=== PATIENT | male | born 1955 | race Caucasian/White ===

== ENCOUNTER 2016-09-14 15:15 | Inpatient (IN) | payer OTHER ==
[2016-09-14] MEDS ORDERED: RX INFO: IV CONTRAST WAS GIVEN 1 EACH MISC MISCELLANE PRN (15:21)
[2016-09-14] MEDS ORDERED: DIPH,PERTUS(ACELL)TETVAC-LF 0.5 ML VIAL IM ONE (15:23)
[2016-09-14 15:34] LABS: Glucose,Whole Blood 134 mg/dL (75-99)
[2016-09-14 15:35] LABS: Basophils # (A) 0.1 k/uL (0-0.2); Basophils % (A) 0 %; CH 30.2; CHCM 33.3; Eosinophils # (A) 0.2 k/uL (0-0.7); Eosinophils % (A) 1 %; HCT 43.5 % (39.0-53.0); HDW 2.34; HGB 14.6 gm/dL (13.0-17.5); Luc % (Auto) 2; Lymphocytes # (A) 2.9 k/uL (1.0-4.8); Lymphocytes % (A) 24 %; MCH 30.6 pg (25.0-35.0); MCHC 33.5 g/dL (31.0-37.0); MCV 91.3 fL (80.0-100.0); Mean Platelet Volume 7.6; Monocytes # (A) 0.5 k/uL (0-1.0); Monocytes % (A) 4 %; Neutrophils # (A) 8.6 k/uL (1.3-7.7); Neutrophils % (A) 69 %; RBC 4.76 m/uL (4.30-5.90); RDW 12.5 % (11.5-15.5); WBC 12.5 k/uL (3.8-10.6); WBC (Perox) 12.77
[2016-09-14 15:37] LABS: ALT 127 U/L (21-72); AST 151 U/L (17-59); Alcohol <10 mg/dL; Alkaline Phosphatase 92 U/L (38-126); Amylase 97 U/L (30-110); Anion Gap 11 mmol/L; Blood Urea Nitrogen 20 mg/dL (9-20); Calcium 9.7 mg/dL (8.4-10.2); Carbon Dioxide 20 mmol/L (22-30); Chloride 110 mmol/L (98-107); Glucose 140 mg/dL (74-99); Non-African American GFR(MDRD) >60 (>60 ml/min/1.73 sqM); Potassium 3.4 mmol/L (3.5-5.1); Sodium 141 mmol/L (137-145); Total Bilirubin 0.8 mg/dL (0.2-1.3); Total Protein 6.7 g/dL (6.3-8.2)
[2016-09-14 15:44] LABS: INR 1.2 (<1.1); Partial Thromboplastin Time 22.2 sec (22.0-30.0); Prothrombin Time 11.8 sec (9.0-12.0)
[2016-09-14 15:47] LABS: Creatine Kinase 253 U/L (55-170)
--- NOTE | 2016-09-14 15:54 | XR ---
EXAMINATION TYPE: XR chest 1V portable DATE OF EXAM: 09/14/2016 COMPARISON: 06/06/2016 HISTORY: Fall and trauma TECHNIQUE: Single frontal view of the chest is obtained. FINDINGS: There is some left-sided perihilar pulmonary infiltrate and atelectasis. There is a fract ure of the posterior left fourth rib. There are chest leads. There is an approximate 50% left pneumot horax. I see no pleural effusion. There are chest leads. IMPRESSION: 50% left pneumothorax with some atelectasis and infiltrate in the left lung. Left rib fr acture. This exam was discussed with Dr. Bishop at 3:50 PM.
--- NOTE | 2016-09-14 15:55 | XR ---
EXAMINATION TYPE: XR pelvis AP view DATE OF EXAM: 09/14/2016 COMPARISON: NONE HISTORY: Fall TECHNIQUE: Single view FINDINGS: Pelvic ring is intact. Proximal femurs and hip joints appear intact. Sacroiliac joints appe ar normal. IMPRESSION: Negative pelvis x-ray exam.
[2016-09-14 15:59] LABS: Troponin I <0.012 ng/mL (0.000-0.034)
--- NOTE | 2016-09-14 15:59 | CT ---
EXAMINATION TYPE: CT brain claudia cruz DATE OF EXAM: 09/14/2016 COMPARISON: NONE HISTORY: Fall 8 foot from ladder after being hit in chest with large tree limb. CT DLP: 1539.20 mGycm Automated exposure control for dose reduction was used. TECHNIQUE: CT scan of the head and cervical spine are performed without contrast. FINDINGS: The ventricles have normal size. There is no mass effect nor midline shift. There is no s ign of intracranial hemorrhage. The calvarium is intact. I see no fracture. Cervical vertebra have normal alignment. Disc spaces are fairly normal. There is mild multilevel hype rtrophic facet arthropathy. The skull base is intact. There is a left pneumothorax noted at the left lung apex. There is a nondisplaced fracture left first rib. IMPRESSION: Negative CT scan of the brain. No evidence of traumatic injury. Negative CT scan of the cervical spine. Mild facet arthropathy. Left apical pneumothorax. Left first rib fracture noted.
[2016-09-14 16:02] LABS: Creatine Kinase MB 2.5 ng/mL (0.0-2.4)
--- NOTE | 2016-09-14 16:08 | CT ---
EXAMINATION TYPE: CT ChestAbdPelvis w con DATE OF EXAM: 09/14/2016 COMPARISON: NONE HISTORY: Fall 8 foot from ladder after being hit in chest with large tree limb. CT DLP: 540.70 mGycm Automated exposure control for dose reduction was used. CONTRAST: CT scan of the chest, abdomen and pelvis is performed without Oral Contrast and with IV Contrast, pat ient injected with 100 mL of Omnipaque 300. FINDINGS: There is a 50% left pneumothorax. There is patchy atelectasis at the lung bases. The thoracic aorta i s intact. Heart size is normal. There is no pleural effusion. There is nondisplaced fracture left first rib. There is probably a nondisplaced fracture anterior lef t first rib at the sternum. There are fractures of the posterior second third fourth ribs as well. Liver spleen pancreas gallbladder appear normal. Bile ducts are not dilated. There is no adrenal mass . Kidneys show satisfactory contrast opacification. There is no hydronephrosis. There is no retroperi toneal adenopathy. Abdominal aorta is atheromatous. Bladder distends smoothly. There is no pelvic mas s. Abdominal aorta is atheromatous. I see no intestinal wall thickening. There are no dilated loops. IMPRESSION: Multiple left upper posterior rib fractures. Large left pneumothorax. Patchy infiltrate and atelecta sis in the lung bases. No sign of traumatic injury below the diaphragm.
[2016-09-14] MEDS: fentaNYL (PF) 50 MCG/ML 2 ML AMP IV STA ×2 (16:13→16:35)
[2016-09-14] MEDS: MIDAZOLAM (PF) 1 MG/ML 5 ML VIAL IV STA ×2 (16:15→16:35)
--- NOTE | 2016-09-14 16:49 | ED ---
Trauma HPI - General Chief Complaint: Trauma Stated Complaint: FALL FROM LADDER APX 8 FT Time Seen by Provider: 09/14/16 15:15 Source: patient, EMS, RN notes reviewed Mode of arrival: EMS Limitations: no limitations - History of Present Illness Initial Comments: 60-year-old male with a benign past history who apparently was at the top of a footwear chainsaw trying to cut a 2 foot diameter tree branch fell in the branch came down and it knocked him to the ground off the ladder. He landed on grass he denies any loss of consciousness he has some neck pain he complains of pain was shoulders especially on the left also he complained of anterior chest pain some shortness of breath. He is a smoker denies any lung or heart disease. Is unsure when his last tetanus shot was. He was brought in by EMS backboard with cervical collar in place. He did demonstrate a Kathleen Coma Scale of 15 upon arrival. He does complain of Severe Pain MD Complaint: fall, injury - Related Data Allergies Allergy/AdvReac Type Severity Reaction Status Date / Time No Known Allergies Allergy Verified 09/14/16 15:20 Review of Systems ROS Statement: Those systems with pertinent positive or pertinent negative responses have been documented in the HPI. ROS Other: All systems not noted in ROS Statement are negative. Past Medical History Past Medical History: No Reported History History of Any Multi-Drug Resistant Organisms: Unobtainable Past Surgical History: No Surgical Hx Reported Past Psychological History: Unable to Obtain Smoking Status: Unknown if ever smoked Past Alcohol Use History: Unable to Obtain Past Drug Use History: Unable to Obtain General Exam - General Exam Comments Initial Comments: This is a well-developed well-nourished awake alert oriented 3 male he does have a cervical collar he is on a backboard. The backboard was cleared after determination of no spinal process tenderness or neurological deficits to the extremities. Limitations: no limitations, physical limitation General appearance: alert, anxious, in distress Head exam: Present: normocephalic, other (Ecchymosis seen over the left orbit patient is unsure when this occurred) Eye exam: Present: PERRL, EOMI ENT exam: Present: normal exam, mucous membranes moist Neck exam: Present: tenderness, other (Abrasion seen over the anterior neck however the trachea is midline.) Respiratory exam: Present: chest wall tenderness, decreased breath sounds, other (Abrasion seen over the anterior chest tenderness over the left upper chest wall some questionable crepitation.Breath sounds on the left lung base and left-sided chest) Cardiovascular Exam: Present: regular rate, normal rhythm, normal heart sounds. Absent: systolic murmur, diastolic murmur, rubs, gallop, clicks GI/Abdominal exam: Present: soft, normal bowel sounds. Absent: distended, tenderness, guarding, rebound, rigid Rectal exam: Present: normal inspection. Absent: bloody stool Extremities exam: Present: full ROM, tenderness, normal capillary refill, other (Abrasion seen over the anterior right and left shoulders) Back exam: Present: full ROM, tenderness, CVA tenderness (L), muscle spasm, paraspinal tenderness, other (Tenderness palpation over the left posterior ribs abrasion seen over the right posterior lateral chest wall no step-off or crepitation.). Absent: CVA tenderness (R), vertebral tenderness Neurological exam: Present: alert, oriented X3, CN II-XII intact Psychiatric exam: Present: anxious Skin exam: Present: warm, dry, normal color. Absent: intact Course Vital Signs 09/14/16 15:16 Temperature 97.0 F L Pulse Rate 55 L Respiratory 18 Rate Blood Pressure 142/88 O2 Sat by Pulse 98 Oximetry - Reevaluation(s) Reevaluation #1: 09/14/16 17:17 Reevaluation the patient after the insertion of the chest reveals increased aeration on the left side. Patient is more comfortable at this time. Medical Decision Making - Medical Decision Making I did discuss case with Dr. Lee patient will be admitted with thoracic and pulmonary consultation. The patient will be admitted to a monitored bed. - Lab Data Result diagrams: 09/14/16 15:21 09/14/16 15:21 Lab Results 09/14/16 09/14/16 09/14/16 Range/Units 15:21 15:21 15:21 WBC 12.5 H (3.8-10.6) k/uL RBC 4.76 (4.30-5.90) m/uL Hgb 14.6 (13.0-17.5) gm/dL Hct 43.5 (39.0-53.0) % MCV 91.3 (80.0-100.0) fL MCH 30.6 (25.0-35.0) pg MCHC 33.5 (31.0-37.0) g/dL RDW 12.5 (11.5-15.5) % Plt Count 208 (150-450) k/uL Neutrophils % 69 % Lymphocytes % 24 % Monocytes % 4 % Eosinophils % 1 % Basophils % 0 % Neutrophils # 8.6 H (1.3-7.7) k/uL Lymphocytes # 2.9 (1.0-4.8) k/uL Monocytes # 0.5 (0-1.0) k/uL Eosinophils # 0.2 (0-0.7) k/uL Basophils # 0.1 (0-0.2) k/uL PT (9.0-12.0) sec INR (<1.1) APTT (22.0-30.0) sec Sodium 141 (137-145) mmol/L Potassium 3.4 L (3.5-5.1) mmol/L Chloride 110 H (98-107) mmol/L Carbon Dioxide 20 L (22-30) mmol/L Anion Gap 11 mmol/L BUN 20 (9-20) mg/dL Creatinine 1.20 (0.66-1.25) mg/dL Est GFR (MDRD) Af Amer >60 (>60 ml/min/1.73 sqM) Est GFR (MDRD) Non-Af >60 (>60 ml/min/1.73 sqM) Glucose 140 H (74-99) mg/dL POC Glucose (mg/dL) (75-99) mg/dL POC Glu [facility] ID Plasma Lactic Acid Richardson (0.7-2.0) mmol/L Calcium 9.7 (8.4-10.2) mg/dL Total Bilirubin 0.8 (0.2-1.3) mg/dL AST 151 H (17-59) U/L ALT 127 H (21-72) U/L Alkaline Phosphatase 92 (38-126) U/L Total Creatine Kinase (55-170) U/L CK-MB (CK-2) (0.0-2.4) ng/mL CK-MB (CK-2) Rel Index Troponin I (0.000-0.034) ng/mL Total Protein 6.7 (6.3-8.2) g/dL Albumin 4.0 (3.5-5.0) g/dL Amylase 97 (30-110) U/L Lipase 238 (23-300) U/L Serum Alcohol <10 mg/dL Blood Type B Positive Blood Type Recheck CABO Indicated Antibody Screen NEGATIVE Spec Expiration Date 09/17/2016 - 232009/14/16 09/14/16 09/14/16 Range/Units 15:21 15:21 15:21 WBC (3.8-10.6) k/uL RBC (4.30-5.90) m/uL Hgb (13.0-17.5) gm/dL Hct (39.0-53.0) % MCV (80.0-100.0) fL MCH (25.0-35.0) pg MCHC (31.0-37.0) g/dL RDW (11.5-15.5) % Plt Count (150-450) k/uL Neutrophils % % Lymphocytes % % Monocytes % % Eosinophils % % Basophils % % Neutrophils # (1.3-7.7) k/uL Lymphocytes # (1.0-4.8) k/uL Monocytes # (0-1.0) k/uL Eosinophils # (0-0.7) k/uL Basophils # (0-0.2) k/uL PT 11.8 (9.0-12.0) sec INR 1.2 (<1.1) APTT 22.2 (22.0-30.0) sec Sodium (137-145) mmol/L Potassium (3.5-5.1) mmol/L Chloride (98-107) mmol/L Carbon Dioxide (22-30) mmol/L Anion Gap mmol/L BUN (9-20) mg/dL Creatinine (0.66-1.25) mg/dL Est GFR (MDRD) Af Amer (>60 ml/min/1.73 sqM) Est GFR (MDRD) Non-Af (>60 ml/min/1.73 sqM) Glucose (74-99) mg/dL POC Glucose (mg/dL) (75-99) mg/dL POC Glu Traditional [facility] ID Plasma Lactic Acid Richardson 2.0 (0.7-2.0) mmol/L Calcium (8.4-10.2) mg/dL Total Bilirubin (0.2-1.3) mg/dL AST (17-59) U/L ALT (21-72) U/L Alkaline Phosphatase (38-126) U/L Total Creatine Kinase 253 H (55-170) U/L CK-MB (CK-2) 2.5 H* (0.0-2.4) ng/mL CK-MB (CK-2) Rel Index 1.0 Troponin I <0.012 (0.000-0.034) ng/mL Total Protein (6.3-8.2) g/dL Albumin (3.5-5.0) g/dL Amylase (30-110) U/L Lipase (23-300) U/L Serum Alcohol mg/dL Blood Type Blood Type Recheck Antibody Screen Spec Expiration Date 09/14/16 Range/Units 15:23 WBC (3.8-10.6) k/uL RBC (4.30-5.90) m/uL Hgb (13.0-17.5) gm/dL Hct (39.0-53.0) % MCV (80.0-100.0) fL MCH (25.0-35.0) pg MCHC (31.0-37.0) g/dL RDW (11.5-15.5) % Plt Count (150-450) k/uL Neutrophils % % Lymphocytes % % Monocytes % % Eosinophils % % Basophils % % Neutrophils # (1.3-7.7) k/uL Lymphocytes # (1.0-4.8) k/uL Monocytes # (0-1.0) k/uL Eosinophils # (0-0.7) k/uL Basophils # (0-0.2) k/uL PT (9.0-12.0) sec INR (<1.1) APTT (22.0-30.0) sec Sodium (137-145) mmol/L Potassium (3.5-5.1) mmol/L Chloride (98-107) mmol/L Carbon Dioxide (22-30) mmol/L Anion Gap mmol/L BUN (9-20) mg/dL Creatinine (0.66-1.25) mg/dL Est GFR (MDRD) Af Amer (>60 ml/min/1.73 sqM) Est GFR (MDRD) Non-Af (>60 ml/min/1.73 sqM) Glucose (74-99) mg/dL POC Glucose (mg/dL) 134 H (75-99) mg/dL POC Glu [facility] ID [facility] Plasma Lactic Acid Richardson (0.7-2.0) mmol/L Calcium (8.4-10.2) mg/dL Total Bilirubin (0.2-1.3) mg/dL AST (17-59) U/L ALT (21-72) U/L Alkaline Phosphatase (38-126) U/L Total Creatine Kinase (55-170) U/L CK-MB (CK-2) (0.0-2.4) ng/mL CK-MB (CK-2) Rel Index Troponin I (0.000-0.034) ng/mL Total Protein (6.3-8.2) g/dL Albumin (3.5-5.0) g/dL Amylase (30-110) U/L Lipase (23-300) U/L Serum Alcohol mg/dL Blood Type Blood Type Recheck Antibody Screen Spec Expiration Date - EKG Data EKG shows normal: sinus rhythm (Sinus bradycardia rate of 55. We'll 150 to QRS 76 QT since QTC of 444/[address] depression low- voltage QRS artifact is present) - Radiology Data Radiology results: report reviewed (I did review the imaging and reports are is evidence of approximately 50% pneumothorax in the left fourth multiple rib fractures ribs [address] imaging is negative.), image reviewed Critical Care Time Critical Care Time: Yes Critical Care Time: 40 minutes of critical care time which includes initial monitoring of the EMS run paramedics history physical labs and x-rays on the patient reevaluation patient on multiple occasions. Discussion with the patient regarding the findings discussed with the trauma surgeon initially green party to was called also after results). This does not include insertion of the tube thoracostomy. Initial orders documentation the above Disposition Clinical Impression: Pneumothorax on left, Multiple rib fractures involving first rib, Multiple abrasions, Fall Disposition: ADMITTED IP TO THIS [facility] Condition: Stable Referrals: None,Stated [Primary Care Provider] - 1-2 days Decision Time: 16:55
[2016-09-14] MEDS ORDERED: ceFAZolin 1,000 MG in DEXTROSE/WATER 1 50ML.BAG IVPB STA (17:17)
[2016-09-14] MEDS ORDERED: NALOXONE 0.4 MG/ML 1 ML VIAL IV PRN (17:21)
--- NOTE | 2016-09-14 17:21 | XR ---
EXAMINATION TYPE: XR chest 1V portable DATE OF EXAM: 09/14/2016 COMPARISON: Today HISTORY: Chest tube placement TECHNIQUE: Single frontal view of the chest is obtained. FINDINGS: There is left chest tube that appears in good position. There is decrease in the left pneu mothorax compared to exam earlier today. Trachea is midline. Heart appears enlarged. There are chest leads. IMPRESSION: Left chest tube is in good position. The pneumothorax is decreased. The infiltrate and a telectasis in the left lung is unchanged.
[2016-09-14] MEDS: IPRATROPIUM-ALBUTEROL 3 ML NEB INHALATION STA ×2 (17:44→17:53)
[2016-09-14] MEDS ORDERED: HYDROmorphone 1 MG/ML 1 ML SYRINGE IVP STA (17:45)
[2016-09-14] MEDS: HYDROmorphone 1 MG/ML 1 ML SYRINGE IV PRN ×2 (17:49→21:08)
--- NOTE | 2016-09-14 18:28 | P.GSHP ---
History of Present Illness H&P Date: 09/14/16 Chief Complaint: Thorcic trauma due to falling tree Patient's 52-year-old gentleman who was cutting a tree and that fell down on amount of the back. He was reportedly alert awake oriented throughout that and did not lose consciousness. He was brought to the emergency room and was reportedly at a GCS of 15 without any focal deficits. Further evaluation revealed a large 70% pneumothorax on the left side with fractures of the posterior ribs. Her chest tube was placed which resulted in reinflation of the lung without any issues. At that time he was sedated for the procedure with Versed and on further interview he does not recall the details of his trauma but prior to that had been completely alert and cooperative with details on his trauma. He is complaining of significant amount of left-sided pain. He is also complaining some pain at the site of his periorbital ecchymosis. There is no nausea no vomiting no incontinence reported. No complaint of abdominal pain focal deficit no discomfort in the lower extremities upper extremities. His no other pain and discomfort in the lower back onto the abdomen. - Review of Systems Comment: Review of systems is slightly limited due to the patient being in the effect of Versed and fentanyl - Constitutional Constitutional: Reports fatigue - EENT Eyes: denies blurred vision - Cardiovascular Cardiovascular: Reports chest pain, Denies lightheadedness, Denies shortness of breath - Respiratory Respiratory: Denies congestion, Denies cough with sputum - Gastrointestinal Gastrointestinal: Denies abdominal pain, Denies diarrhea, Denies nausea, Denies vomiting - Genitourinary (Male) Genitourinary: Reports as per HPI - Musculoskeletal Musculoskeletal: Denies myalgias Past Medical History Past Medical History: No Reported History History of Any Multi-Drug Resistant Organisms: Unobtainable Past Surgical History: No Surgical Hx Reported Past Psychological History: Unable to Obtain Smoking Status: Unknown if ever smoked Past Alcohol Use History: Unable to Obtain Past Drug Use History: Unable to Obtain Medications and Allergies Home Medications Medication Instructions Recorded Confirmed Type No Known Home Medications [No 09/14/16 09/14/16 History Known Home Medications] Allergies Allergy/AdvReac Type Severity Reaction Status Date / Time No Known Allergies Allergy Verified 09/14/16 17:37 Surgical - Exam Vital Signs Temp Pulse Resp BP Pulse Ox 97.0 F L 55 L 18 142/88 98 09/14/16 15:16 07/09/17 15:16 09/14/16 15:16 09/14/16 15:16 09/14/16 15:16 - General well developed, well nourished, severe distress - Eyes Pupils are pinpoint and sluggish to move probably due to recent administration of fentanyl normal ocular movement, no icteric, no deviation - ENT normal pinna, normal nares, normal mucosa, no hearing loss, no congestion, no decreased hearing, no deviated nasal septum, no nasal discharge - Neck no masses, no bruits, trachea midline, no venous distension, no deviated trachea thyroid nodule: absent - Respiratory normal expansion, normal respiratory effort - Cardiovascular Rhythm: regular - Abdomen Abdomen: soft, non tender, no surgical scars, no wound, no rebound Hernia: none - Genitourinary normal penis with no external lesions - Integumentary Patient has a small abrasion of the chest he does multiple abrasions and extended over the shoulder. He is a small open wound over the left shoulder. He has left periorbital ecchymosis without any conjunctival hemorrhage. - Neurologic normal coordination, normal sensation, no combative, confused - Musculoskeletal normal posture - Psychiatric oriented to time, oriented to person, oriented to place, speech is normal, memory intact Results - Labs 09/14/16 15:21 09/14/16 15:21 Abnormal Lab Results - Last 24 Hours (Table) 09/14/16 09/14/16 09/14/16 Range/Units 15:21 15:21 15:21 WBC 12.5 H (3.8-10.6) k/uL Neutrophils # 8.6 H (1.3-7.7) k/uL Potassium 3.4 L (3.5-5.1) mmol/L Chloride 110 H (98-107) mmol/L Carbon Dioxide 20 L (22-30) mmol/L Glucose 140 H (74-99) mg/dL POC Glucose (mg/dL) (75-99) mg/dL AST 151 H (17-59) U/L ALT 127 H (21-72) U/L Total Creatine Kinase 253 H (55-170) U/L CK-MB (CK-2) 2.5 H* (0.0-2.4) ng/mL 09/14/16 Range/Units 15:23 WBC (3.8-10.6) k/uL Neutrophils # (1.3-7.7) k/uL Potassium (3.5-5.1) mmol/L Chloride (98-107) mmol/L Carbon Dioxide (22-30) mmol/L Glucose (74-99) mg/dL POC Glucose (mg/dL) 134 H (75-99) mg/dL AST (17-59) U/L ALT (21-72) U/L Total Creatine Kinase (55-170) U/L CK-MB (CK-2) (0.0-2.4) ng/mL Diabetes panel 09/14/16 Range/Units 15:21 Sodium 141 (137-145) mmol/L Potassium 3.4 L (3.5-5.1) mmol/L Chloride 110 H (98-107) mmol/L Carbon Dioxide 20 L (22-30) mmol/L BUN 20 (9-20) mg/dL Creatinine 1.20 (0.66-1.25) mg/dL Glucose 140 H (74-99) mg/dL Calcium 9.7 (8.4-10.2) mg/dL AST 151 H (17-59) U/L ALT 127 H (21-72) U/L Alkaline Phosphatase 92 (38-126) U/L Total Protein 6.7 (6.3-8.2) g/dL Albumin 4.0 (3.5-5.0) g/dL Calcium panel 09/14/16 Range/Units 15:21 Calcium 9.7 (8.4-10.2) mg/dL Albumin 4.0 (3.5-5.0) g/dL Pituitary panel 09/14/16 Range/Units 15:21 Sodium 141 (137-145) mmol/L Potassium 3.4 L (3.5-5.1) mmol/L Chloride 110 H (98-107) mmol/L Carbon Dioxide 20 L (22-30) mmol/L BUN 20 (9-20) mg/dL Creatinine 1.20 (0.66-1.25) mg/dL Glucose 140 H (74-99) mg/dL Calcium 9.7 (8.4-10.2) mg/dL Adrenal panel 09/14/16 Range/Units 15:21 Sodium 141 (137-145) mmol/L Potassium 3.4 L (3.5-5.1) mmol/L Chloride 110 H (98-107) mmol/L Carbon Dioxide 20 L (22-30) mmol/L BUN 20 (9-20) mg/dL Creatinine 1.20 (0.66-1.25) mg/dL Glucose 140 H (74-99) mg/dL Calcium 9.7 (8.4-10.2) mg/dL Total Bilirubin 0.8 (0.2-1.3) mg/dL AST 151 H (17-59) U/L ALT 127 H (21-72) U/L Alkaline Phosphatase 92 (38-126) U/L Total Protein 6.7 (6.3-8.2) g/dL Albumin 4.0 (3.5-5.0) g/dL - Imaging Additional studies: Left-sided pneumothorax with posterior rib fractures Assessment and Plan (1) Fall Status: Acute (2) Multiple abrasions Status: Acute (3) Multiple rib fractures involving first rib Status: Acute (4) Pneumothorax on left Status: Acute Plan: Original gentleman previous history of smoking. Likely he has some element of COPD. In the large pneumothorax which responded to this and the chest tube. Is complaining of significant pain. Chest x-ray revealed resolution of pneumothorax. Due to the patient's posterior rib fractures and pain the patient will be admitted. I will consult pulmonology as well as thoracic for management of chest tube. The patient does likely have underlying lung contusion as well.
[2016-09-14] MEDS: SODIUM CHLORIDE 0.9% 1,000 ML IV SCH (19:11)
[2016-09-14] MEDS ORDERED: IPRATROPIUM-ALBUTEROL 3 ML NEB INHALATION SCH (20:00)
[2016-09-14] MEDS ORDERED: IPRATROPIUM-ALBUTEROL 3 ML NEB INHALATION PRN (20:21)
[2016-09-14] MEDS: LIDOCAINE 5% PATCH TOPICAL SCH (21:09)
[2016-09-14] MEDS: PANTOPRAZOLE 40 MG/10 ML VIAL IV SCH (21:37)
[2016-09-15] MEDS ORDERED: HYDROmorphone 1 MG/ML 1 ML SYRINGE ONE ×2
[2016-09-15] MEDS: SODIUM CHLORIDE 0.9% 1,000 ML IV SCH ×4 (06:01→23:47)
[2016-09-15] MEDS: HYDROmorphone 1 MG/ML 1 ML SYRINGE IV PRN ×3 (06:20→14:39)
[2016-09-15] MEDS ORDERED: HYDROcodone/APAP 5-325MG 1 EACH TAB PO PRN (08:48)
[2016-09-15] MEDS: LIDOCAINE 5% PATCH TOPICAL SCH (10:11)
[2016-09-15] MEDS: NICOTINE 21MG/24HR PATCH TRANSDERM SCH ×2 (10:11→10:19)
[2016-09-15] MEDS: PANTOPRAZOLE 40 MG/10 ML VIAL IV SCH ×2 (10:11→19:46)
--- NOTE | 2016-09-15 12:03 | P.GSCN ---
<Helga Raymundo - Last Filed: 09/15/16 11:50> History of Present Illness Consult date: 09/15/16 Reason for Consult: POD #1 left chest tube placement, status posttraumatic pneumothorax. Requesting physician: Joseluis Bishop History of present illness: This 52-year-old gentleman was up on a ladder cutting a tree at home which fell down and hit him. He fell off the ladder and there is a question as to whether he lost consciousness or not. He was brought to the emergency room with a GCS of 15 without deficits. Workup included multiple x-rays and CAT scans which demonstrated a left-sided pneumothorax as well as left-sided rib fractures. Left pleural chest tube was placed by the ER physicians with resolution of the patient's pneumothorax. Dr. Morales from cardiothoracic surgery was consulted for management of the chest tube. Review of Systems 14 point ROS was completed and was negative except as noted. - Constitutional Constitutional Comment(s): Difficulty sleeping - Cardiovascular Reports chest pain - Respiratory Reports as per HPI - Musculoskeletal right: shoulder pain, shoulder stiffness Past Medical History Past Medical History: No Reported History History of Any Multi-Drug Resistant Organisms: Unobtainable Past Surgical History: No Surgical Hx Reported Past Anesthesia/Blood Transfusion Reactions: No Reported Reaction Smoking Status: Former smoker Additional Past Alcohol Use History / Comment(s): States he quit drinking alcohol years ago Past Drug Use History: Marijuana Additional Drug Use History / Comment(s): Occasional marijuana use to help him sleep - Past Family History Mother Family Medical History: Cancer Additional Family Medical History / Comment(s): PANCREASE CANCER. Father History Unknown: Yes Medications and Allergies Home Medications Medication Instructions Recorded Confirmed Type No Known Home Medications [No 09/14/16 09/14/16 History Known Home Medications] Allergies Allergy/AdvReac Type Severity Reaction Status Date / Time No Known Allergies Allergy Verified 09/14/16 17:37 Surgical - Exam Vital Signs Temp Pulse Resp BP Pulse Ox 97.0 F L 55 L 18 142/88 98 09/14/16 15:16 09/14/16 15:16 09/14/16 15:16 09/14/16 15:16 09/14/16 15:16 - General well developed, well nourished, moderate pain - Eyes PERRL, normal ocular movement - ENT no hearing loss - Neck trachea midline - Respiratory Lungs sounds diminished bilaterally. Respirations even, nonlabored. Currently on 2 L nasal cannula with oxygen saturation 96%. Left pleural chest tube to - 20 cm wall suction, 10 mL serosanguineous drainage in the chamber, no air leak present. - Cardiovascular Rhythm: regular Heart Sounds: normal: S1, S2 - Abdomen Abdomen: soft, non tender, bowel sounds - Genitourinary Deferred - Rectum Deferred - Integumentary Multiple areas of ecchymosis, abrasions over her chest and shoulder areas - Neurologic normal sensation - Musculoskeletal Unable to lift right arm, may be secondary to pain. - Psychiatric oriented to time, oriented to person, oriented to place, speech is normal, memory intact Results - Labs 09/14/16 15:21 09/14/16 15:21 Abnormal Lab Results - Last 24 Hours (Table) 09/14/16 09/14/16 09/14/16 Range/Units 15:21 15:21 15:21 WBC 12.5 H (3.8-10.6) k/uL Neutrophils # 8.6 H (1.3-7.7) k/uL Potassium 3.4 L (3.5-5.1) mmol/L Chloride 110 H (98-107) mmol/L Carbon Dioxide 20 L (22-30) mmol/L Glucose 140 H (74-99) mg/dL POC Glucose (mg/dL) (75-99) mg/dL AST 151 H (17-59) U/L ALT 127 H (21-72) U/L Total Creatine Kinase 253 H (55-170) U/L CK-MB (CK-2) 2.5 H* (0.0-2.4) ng/mL 09/14/16 Range/Units 15:23 WBC (3.8-10.6) k/uL Neutrophils # (1.3-7.7) k/uL Potassium (3.5-5.1) mmol/L Chloride (98-107) mmol/L Carbon Dioxide (22-30) mmol/L Glucose (74-99) mg/dL POC Glucose (mg/dL) 134 H (75-99) mg/dL AST (17-59) U/L ALT (21-72) U/L Total Creatine Kinase (55-170) U/L CK-MB (CK-2) (0.0-2.4) ng/mL Diabetes panel 09/14/16 Range/Units 15:21 Sodium 141 (137-145) mmol/L Potassium 3.4 L (3.5-5.1) mmol/L Chloride 110 H (98-107) mmol/L Carbon Dioxide 20 L (22-30) mmol/L BUN 20 (9-20) mg/dL Creatinine 1.20 (0.66-1.25) mg/dL Glucose 140 H (74-99) mg/dL Calcium 9.7 (8.4-10.2) mg/dL AST 151 H (17-59) U/L ALT 127 H (21-72) U/L Alkaline Phosphatase 92 (38-126) U/L Total Protein 6.7 (6.3-8.2) g/dL Albumin 4.0 (3.5-5.0) g/dL Calcium panel 09/14/16 Range/Units 15:21 Calcium 9.7 (8.4-10.2) mg/dL Albumin 4.0 (3.5-5.0) g/dL Pituitary panel 09/14/16 Range/Units 15:21 Sodium 141 (137-145) mmol/L Potassium 3.4 L (3.5-5.1) mmol/L Chloride 110 H (98-107) mmol/L Carbon Dioxide 20 L (22-30) mmol/L BUN 20 (9-20) mg/dL Creatinine 1.20 (0.66-1.25) mg/dL Glucose 140 H (74-99) mg/dL Calcium 9.7 (8.4-10.2) mg/dL Adrenal panel 09/14/16 Range/Units 15:21 Sodium 141 (137-145) mmol/L Potassium 3.4 L (3.5-5.1) mmol/L Chloride 110 H (98-107) mmol/L Carbon Dioxide 20 L (22-30) mmol/L BUN 20 (9-20) mg/dL Creatinine 1.20 (0.66-1.25) mg/dL Glucose 140 H (74-99) mg/dL Calcium 9.7 (8.4-10.2) mg/dL Total Bilirubin 0.8 (0.2-1.3) mg/dL AST 151 H (17-59) U/L ALT 127 H (21-72) U/L Alkaline Phosphatase 92 (38-126) U/L Total Protein 6.7 (6.3-8.2) g/dL Albumin 4.0 (3.5-5.0) g/dL - Imaging Chest x-ray: image reviewed CT scan - chest: image reviewed Assessment and Plan (1) Status post chest tube placement Status: Acute (2) Fall Status: Acute (3) Multiple abrasions Status: Acute (4) Multiple rib fractures involving first rib Status: Acute (5) Pneumothorax on left Status: Acute Plan: The patient was seen and examined with Dr. Morales. Chart/diagnostics were reviewed. Continue current medical management per primary care service. [place] added for pain control. Incentive spirometry ordered and encouraged. We'll continue to monitor chest tube output and for air leak, we will monitor serial chest x-rays. More recommendations as patient progresses. Thank you for this consult. We look forward to working with you in the care of your patient. Time with Patient: Greater than 30 <Andrew Morales - Last Filed: 09/15/16 15:18> Surgical - Exam Vital Signs Temp Pulse Resp BP Pulse Ox 97.0 F L 55 L 18 142/88 98 09/14/16 15:16 09/14/16 15:16 09/14/16 15:16 09/14/16 15:16 09/14/16 15:16 Results - Labs 09/14/16 15:21 09/14/16 15:21 Abnormal Lab Results - Last 24 Hours (Table) 09/14/16 09/14/16 09/14/16 Range/Units 15:21 15:21 15:21 WBC 12.5 H (3.8-10.6) k/uL Neutrophils # 8.6 H (1.3-7.7) k/uL Potassium 3.4 L (3.5-5.1) mmol/L Chloride 110 H (98-107) mmol/L Carbon Dioxide 20 L (22-30) mmol/L Glucose 140 H (74-99) mg/dL POC Glucose (mg/dL) (75-99) mg/dL AST 151 H (17-59) U/L ALT 127 H (21-72) U/L Total Creatine Kinase 253 H (55-170) U/L CK-MB (CK-2) 2.5 H* (0.0-2.4) ng/mL 09/14/16 Range/Units 15:23 WBC (3.8-10.6) k/uL Neutrophils # (1.3-7.7) k/uL Potassium (3.5-5.1) mmol/L Chloride (98-107) mmol/L Carbon Dioxide (22-30) mmol/L Glucose (74-99) mg/dL POC Glucose (mg/dL) 134 H (75-99) mg/dL AST (17-59) U/L ALT (21-72) U/L Total Creatine Kinase (55-170) U/L CK-MB (CK-2) (0.0-2.4) ng/mL Diabetes panel 09/14/16 Range/Units 15:21 Sodium 141 (137-145) mmol/L Potassium 3.4 L (3.5-5.1) mmol/L Chloride 110 H (98-107) mmol/L Carbon Dioxide 20 L (22-30) mmol/L BUN 20 (9-20) mg/dL Creatinine 1.20 (0.66-1.25) mg/dL Glucose 140 H (74-99) mg/dL Calcium 9.7 (8.4-10.2) mg/dL AST 151 H (17-59) U/L ALT 127 H (21-72) U/L Alkaline Phosphatase 92 (38-126) U/L Total Protein 6.7 (6.3-8.2) g/dL Albumin 4.0 (3.5-5.0) g/dL Calcium panel 09/14/16 Range/Units 15:21 Calcium 9.7 (8.4-10.2) mg/dL Albumin 4.0 (3.5-5.0) g/dL Pituitary panel 09/14/16 Range/Units 15:21 Sodium 141 (137-145) mmol/L Potassium 3.4 L (3.5-5.1) mmol/L Chloride 110 H (98-107) mmol/L Carbon Dioxide 20 L (22-30) mmol/L BUN 20 (9-20) mg/dL Creatinine 1.20 (0.66-1.25) mg/dL Glucose 140 H (74-99) mg/dL Calcium 9.7 (8.4-10.2) mg/dL Adrenal panel 09/14/16 Range/Units 15:21 Sodium 141 (137-145) mmol/L Potassium 3.4 L (3.5-5.1) mmol/L Chloride 110 H (98-107) mmol/L Carbon Dioxide 20 L (22-30) mmol/L BUN 20 (9-20) mg/dL Creatinine 1.20 (0.66-1.25) mg/dL Glucose 140 H (74-99) mg/dL Calcium 9.7 (8.4-10.2) mg/dL Total Bilirubin 0.8 (0.2-1.3) mg/dL AST 151 H (17-59) U/L ALT 127 H (21-72) U/L Alkaline Phosphatase 92 (38-126) U/L Total Protein 6.7 (6.3-8.2) g/dL Albumin 4.0 (3.5-5.0) g/dL Assessment and Plan Plan: The patient was seen and examined. I agree with the above assessment and plan. The patient is a 60-year-old male who fell from a ladder. He was found to have multiple left-sided rib fractures along with a scapula fracture and clavicular fracture. He was also noted to have a large left-sided pneumothorax. A chest tube was placed in the emergency department. His chest x -ray today reveals no obvious pneumothorax. We will keep it on suction for now. There is no air leak. We will need to optimize his pain control. We can probably transition it to waterseal tomorrow. We will certainly follow along with you while he remains hospitalized.
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
--- NOTE | 2016-09-15 12:57 | XR ---
EXAMINATION TYPE: XR chest 1V portable DATE OF EXAM: 09/15/2016 COMPARISON: Prior chest x-ray 09/14/2016 HISTORY: Pneumothorax, chest tube TECHNIQUE: Single frontal view of the chest is obtained. FINDINGS: Exam is stable. Left-sided chest tube remains in place and is directed towards the mediast inum. Subcutaneous emphysema is noted. Left clavicular fracture shows bayonet apposition. Multiple le ft-sided rib fractures are present. No sizable pneumothorax or pleural effusion is evident. Cardiac m ediastinal silhouette, pulmonary vascularity and mine are stable. IMPRESSION: Stable exam.
--- NOTE | 2016-09-15 13:34 | XR ---
Right scapula HISTORY: Fracture, trauma and pain Correlation to CT 09/14/2016 Comminuted right scapular fracture is noted. No dislocation. IMPRESSION: Comminuted right scapular fracture, displaced fracture fragments.
[2016-09-15] MEDS: KETOROLAC 30 MG/ML 1 ML VIAL IVP SCH ×2 (18:28→23:36)
[2016-09-16] MEDS: PANTOPRAZOLE 40 MG TABLET PO SCH ×2 (06:19→16:47)
[2016-09-16] MEDS: KETOROLAC 30 MG/ML 1 ML VIAL IVP SCH ×3 (06:19→17:52)
[2016-09-16] MEDS: NICOTINE 21MG/24HR PATCH TRANSDERM SCH (08:46)
[2016-09-16] MEDS: SODIUM CHLORIDE 0.9% 1,000 ML IV SCH ×2 (08:48→16:46)
[2016-09-16] MEDS: LIDOCAINE 5% PATCH TOPICAL SCH (08:50)
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
--- NOTE | 2016-09-16 10:24 | P.PN ---
Subjective Principal diagnosis: Traumatic left pneumothorax POD #2 left chest tube placement Patient's currently sitting up in bed in no acute distress. States his pain is controlled on prescribed regimen. Still unable to move his right arm very much. Objective - Vital Signs Vital signs: Vital Signs Temp 98.9 F 09/16/16 04:00 Pulse 54 L 09/16/16 04:00 Resp 18 09/16/16 04:00 BP 125/73 09/16/16 04:00 Pulse Ox 92 L 09/16/16 04:00 Intake & Output 09/15/16 09/16/16 09/16/16 18:59 06:59 18:59 Intake Total 1240 1000 980 Output Total 1100 1170 Balance 140 -170 980 Weight 58.5 kg 58 kg Intake: Intake, IV Titration 1000 1000 Amount Sodium Chloride 0.9% 1, 1000 1000 000 ml @ 125 mls/hr IV . Q8H [facility] Rx#:[id number] Oral 240 980 Output: Chest Tube Drainage 75 70 Chest Tube Left Upper 75 70 Lateral Chest Urine 1025 1100 Other: Voiding Method Urinal Urinal # Voids 1 - Constitutional General appearance: Present: cooperative, no acute distress - Respiratory Details: Lungs sounds diminished bilaterally. Respirations even, nonlabored. Currently on 2 L nasal cannula with oxygen saturation 92%. Able to achieve 750-1000 mL on his incentive spirometry. - Cardiovascular Details: S1, S2 present. Regular rate and rhythm, sinus bradycardia to sinus rhythm on telemetry. - Gastrointestinal Gastrointestinal Comment(s): Abdomen soft, nontender, nondistended. Active bowel sounds 4 quadrants. Tolerating diet. - Genitourinary Genitourinary Comment(s): Continues to void clear, yellow urine. - Integumentary Integumentary Comment(s): Multiple areas of ecchymosis and abrasions over chest and shoulder areas. - Musculoskeletal Musculoskeletal: Present: strength equal bilaterally - Psychiatric Psychiatric: Present: A&O x's 3, appropriate affect, intact judgment & insight - Allied health notes Allied health notes reviewed: nursing - Labs CBC & Chem 7: 09/14/16 15:21 09/14/16 15:21 - Imaging and Cardiology Chest x-ray: report reviewed, image reviewed Assessment and Plan (1) Status post chest tube placement Status: Acute (2) Fall Status: Acute (3) Multiple abrasions Status: Acute (4) Multiple rib fractures involving first rib Status: Acute (5) Pneumothorax on left Status: Acute Plan: 1. Will discontinue left pleural chest tube today. 2. Sling to the left arm. 3. Continue current pain medication regimen. 4. Encourage incentive spirometry use. 5. Medical management per primary care service. 6. Will order chest x-ray for the morning. Time with Patient: Greater than 30
--- NOTE | 2016-09-16 10:30 | XR ---
EXAMINATION TYPE: XR chest 1V portable DATE OF EXAM: 09/16/2016 COMPARISON: Prior chest x-ray 09/15/2016 HISTORY: Pneumothorax, chest tube TECHNIQUE: Single frontal view of the chest is obtained on 2 images. FINDINGS: There is no interval change. IMPRESSION: Posttraumatic changes, stable chest tube. No sizable pneumothorax.
[2016-09-16] MEDS: HYDROmorphone 1 MG/ML 1 ML SYRINGE IV PRN (11:15)
--- NOTE | 2016-09-16 11:39 | P.CNOR ---
History of Present Illness - HPI Consult date: 09/16/16 History of present illness: This is a pleasant 60-year-old male who was admitted to the hospital after a fall off of a ladder on 09/14/2016. Patient states 2 days ago he was cutting down a tree with a chain saw when the branch of the tree knocked him off of the ladder. Patient states he was about 3-4 feet off the ground. Orthopedics was consulted for evaluation of right scapular fracture and left clavicle fracture. Today patient states he has pain to the right and left shoulders. Patient states he has no problem moving the left upper extremity but there is pain with any motion of the right upper extremity. Patient denies any numbness, weakness , or tingling to bilateral upper extremities. Patient denies any significant neck pain, hip pain or bilateral lower extremity pain. Patient states he has not been up and walking yet due to his chest tube. Review of Systems See HPI. Past Medical History Past Medical History: No Reported History History of Any Multi-Drug Resistant Organisms: Unobtainable Past Surgical History: No Surgical Hx Reported Past Anesthesia/Blood Transfusion Reactions: No Reported Reaction Smoking Status: Former smoker Additional Past Alcohol Use History / Comment(s): States he quit drinking alcohol years ago Past Drug Use History: Marijuana Additional Drug Use History / Comment(s): Occasional marijuana use to help him sleep - Past Family History Mother Family Medical History: Cancer Additional Family Medical History / Comment(s): PANCREASE CANCER. Father History Unknown: Yes Medications and Allergies Home Medications Medication Instructions Recorded Confirmed Type No Known Home Medications [No 09/14/16 09/14/16 History Known Home Medications] Allergies Allergy/AdvReac Type Severity Reaction Status Date / Time No Known Allergies Allergy Verified 09/14/16 17:37 Physical Examination Patient is alert and oriented 3. Patient is in no acute distress. On exam of the right upper extremity there is swelling and ecchymosis to the right shoulder. There is tenderness to the posterior right shoulder. Patient has limited range of motion of the right upper extremity due to pain. Patient has full range of motion of the right elbow, wrist, hand and fingers. There is no tenderness to palpation over the right humerus, elbow, forearm, wrist or hand. Neurovascular status to the right upper extremity is intact. Radial pulses are 2+ bilaterally. On exam of the left upper extremity there is tenderness over the left clavicle and there is a palpable lump in this area. There is mild swelling to this area. Patient has full forward flexion of the left upper extremity with some pain. Patient has full range of motion at the elbow, wrist, hand and fingers. There is no tenderness to palpation over the left humerus, elbow, forearm, wrist or hand. Neurovascular status left upper extremity is intact. Radial pulses are 2+ bilaterally. No tenderness to bilateral lower extremities. Calves are soft and nontender. Neurovascular status to the bilateral lower extremities are intact. Results X-rays are reviewed showing displaced fracture of the right scapula and displaced fracture of the left clavicle. - Labs Labs: H & H 09/14/16 Range/Units 15:21 Hgb 14.6 (13.0-17.5) gm/dL Hct 43.5 (39.0-53.0) % Coagulation 09/14/16 Range/Units 15:21 INR 1.2 (<1.1) Result Diagrams: 09/14/16 15:21 09/14/16 15:21 Assessment and Plan (1) Right scapula fracture Status: Acute (2) Closed left clavicular fracture Status: Acute Plan: #1. Continue pain control #2. Maintain slings to bilateral upper extremities. #3. No surgical intervention planned at this time. #4. Patient should follow up in the office with Dr. Jonah Avalos in 2 weeks.
[2016-09-16] MEDS: HYDROcodone/APAP 5-325MG 1 EACH TAB PO PRN (12:43)
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
--- NOTE | 2016-09-16 18:14 | XR ---
EXAMINATION TYPE: XR chest 1V DATE OF EXAM: 09/16/2016 COMPARISON: Prior chest x-ray same date earlier time HISTORY: Status post chest tube removal TECHNIQUE: Single frontal view of the chest is obtained. FINDINGS: There is been interval left-sided chest tube removal. No other interval change. IMPRESSION: No evident complication status post chest tube removal
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
[2016-09-17] MEDS: KETOROLAC 30 MG/ML 1 ML VIAL IVP SCH ×2 (00:11→06:07)
[2016-09-17] MEDS: SODIUM CHLORIDE 0.9% 1,000 ML IV SCH ×3 (02:03→09:53)
[2016-09-17] MEDS: PANTOPRAZOLE 40 MG TABLET PO SCH ×2 (06:07→17:54)
--- NOTE | 2016-09-17 07:39 | XR ---
EXAMINATION TYPE: XR chest 1V portable DATE OF EXAM: 09/17/2016 COMPARISON: 09/16/2016 HISTORY: Post chest tube removal TECHNIQUE: Single frontal view of the chest is obtained. FINDINGS: Subsegmental changes involving the left lung base. No sizable pneumothorax. Hyperinflation suggests COPD. Heart size stable. Scoliotic curvature of the spine. Prominence of aortic knob stable . IMPRESSION: 1. Left basilar atelectasis with no sizable. 2. Aortic knob is prominent correlate for thoracic aortic aneurysm
[2016-09-17] MEDS ORDERED: IBUPROFEN 800 MG TAB PO PRN (08:16)
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
--- NOTE | 2016-09-17 08:50 | P.PN ---
Subjective Principal diagnosis: Right scapular fracture, left clavicle fracture This is a pleasant 60-year-old male who sustained a right scapular fracture and left clavicle fracture after a fall. Patient also sustained a pneumothorax and multiple rib fractures. Patient was seen and evaluated at bedside with Dr. Jonah Avalos today. Patient states when he is lying still his pain is well controlled. Patient reports increasing pain with any movement. Patient states the plan is for him to try and get out of bed today as his chest tube was removed. Patient denies any numbness/tingling or weakness bilateral upper extremities. Patient denies any calf pain or swelling. Patient has no new complaints today. Objective - Vital Signs Vital signs: Vital Signs Temp 97.7 F 09/17/16 03:59 Pulse 57 L 09/17/16 03:59 Resp 17 09/17/16 03:59 BP 122/79 09/17/16 03:59 Pulse Ox 94 L 09/17/16 03:59 Intake & Output 09/16/16 09/17/16 09/17/16 18:59 06:59 18:59 Intake Total 1820 Output Total 850 1425 Balance 970 -1425 Weight 60 kg Intake: Oral 1820 Output: Urine 850 1425 Other: Voiding Method Urinal # Voids 2 1 # Bowel Movements 0 - Exam Patient is resting comfortably in bed. Patient is not in any acute distress. Patient is alert and oriented 3. There is tenderness over the left clavicle at the fracture site. Patient has good range of motion of the left upper extremity and states this is easier than trying to move the right upper extremity. Patient has tenderness in the right shoulder. Limited range of motion of the right upper extremity due to pain and swelling. Sensation intact bilaterally. Circulatory status intact bilaterally. No calf tenderness or swelling. - Labs CBC & Chem 7: 09/14/16 15:21 09/14/16 15:21 Assessment and Plan (1) Right scapula fracture Status: Acute (2) Closed left clavicular fracture Status: Acute Plan: #1. Continue pain control #2. SCD's to bilateral lower extremities #3. Maintain sling to left upper extremity. Maintain sling to right upper extremity if needed for comfort. #4. No surgical intervention planned at this time. #5. Patient should follow up in the office with Dr. Jonah Avalos in 2 weeks. Will continue to follow the patient.
[2016-09-17] MEDS: NICOTINE 21MG/24HR PATCH TRANSDERM SCH (09:32)
[2016-09-17] MEDS: ENOXAPARIN 40 MG/0.4 ML SYRINGE SQ SCH (09:48)
[2016-09-17] MEDS: LIDOCAINE 5% PATCH TOPICAL SCH (10:21)
--- NOTE | 2016-09-17 10:31 | P.PN ---
Subjective Principal diagnosis: Traumatic left pneumothorax POD #3 left chest tube placement, removed yesterday. Patient's currently sitting up in bed in no acute distress. States his pain is controlled on prescribed regimen. Objective - Vital Signs Vital signs: Vital Signs Temp 97.7 F 09/17/16 03:59 Pulse 57 L 09/17/16 03:59 Resp 17 09/17/16 03:59 BP 122/79 09/17/16 03:59 Pulse Ox 94 L 09/17/16 03:59 Intake & Output 09/16/16 09/17/16 09/17/16 18:59 06:59 18:59 Intake Total 1820 Output Total 850 1425 Balance 970 -1425 Weight 60 kg Intake: Oral 1820 Output: Urine 850 1425 Other: Voiding Method Urinal # Voids 2 1 # Bowel Movements 0 - Constitutional General appearance: Present: cooperative, no acute distress - Respiratory Details: Lungs sounds diminished bilaterally. Respirations even, nonlabored. Currently on room air saturation 94%. Able to achieve 1750 mL on his incentive spirometry - Cardiovascular Details: S1, S2 present. Regular rate and rhythm, normal sinus rhythm. - Gastrointestinal Gastrointestinal Comment(s): Abdomen soft, nontender, nondistended. Active bowel sounds 4 quadrants. Tolerating diet. - Genitourinary Genitourinary Comment(s): Continues to void clear, yellow urine. - Integumentary Integumentary Comment(s): Left lateral chest tube site covered with dry intact dressing. - Psychiatric Psychiatric: Present: A&O x's 3, appropriate affect, intact judgment & insight - Allied health notes Allied health notes reviewed: nursing - Labs CBC & Chem 7: 09/14/16 15:21 09/14/16 15:21 - Imaging and Cardiology Chest x-ray: report reviewed, image reviewed Assessment and Plan (1) Status post chest tube placement Status: Acute (2) Fall Status: Acute (3) Multiple abrasions Status: Acute (4) Multiple rib fractures involving first rib Status: Acute (5) Pneumothorax on left Status: Acute Plan: 1. Left pleural chest tube discontinued yesterday. Chest x-ray this morning stable. May remove chest tube dressing tomorrow, 09/18/2016. 2. Continue current pain medication regimen. 3. Encourage incentive spirometry use. 4. Medical management per primary care service. 5. Will sign off. Placed on hesitate to call us with any questions. Time with Patient: Less than 30
--- NOTE | 2016-09-17 13:53 | P.PN ---
Subjective Progress note dated 09/17/2016 This is a 60-year-old male who has no major medical problems. He did fall. His climbing a ladder and apparently fell and injured the left chest area. Multiple left rib fractures #123 and 4 ribs. He also had a left-sided pneumothorax status post chest tube placement and also had a pulmonary contusion. The left chest tube is been removed. He has lots of bruises on his anterior chest chest area and left shoulder. Is feeling better. Likely discharge home soon. Anyway the patient is resting comfortably. His biggest issue is pain control. We will have to make sure that he gets adequate pain control so he takes deep breaths. Also will continue the breathing treatments and incentive spirometer. Objective - Vital Signs Vital signs: Vital Signs Temp 97.0 F L 09/17/16 08:00 Pulse 61 09/17/16 08:00 Resp 16 09/17/16 08:00 BP 139/87 09/17/16 08:00 Pulse Ox 94 L 09/17/16 08:00 Intake & Output 09/16/16 09/17/16 09/17/16 18:59 06:59 18:59 Intake Total 1820 100 Output Total 850 1425 Balance 970 -1425 100 Weight 60 kg Intake: Oral 1820 100 Output: Urine 850 1425 Other: Voiding Method Urinal # Voids 2 1 # Bowel Movements 0 - Exam No acute distress, oriented 3. Left arm in a sling. Wearing nasal O2. HEENT examination is grossly unremarkable. Mixed membranes are moist. Neck supple. Full range of motion. No adenopathy or thyromegaly. Neck veins are flat. Cardiovascular examination reveals regular rhythm rate. S1-S2 normal. No S3- S4 or murmur. Lungs reveal diminished breath sounds. A few scattered rhonchi. No crackles. Abdomen soft bowel sounds are heard. No masses or tenderness. Extremities are intact. No cyanosis clubbing or edema. Skin is without rash. - Labs CBC & Chem 7: 09/14/16 15:21 09/14/16 15:21 Assessment and Plan (1) Closed left clavicular fracture Status: Acute (2) Multiple abrasions Status: Acute (3) Multiple rib fractures involving first rib Status: Acute (4) Pneumothorax on left Status: Acute (5) Right scapula fracture Status: Acute (6) Status post chest tube placement Status: Acute Plan: Plan dated 09/17/2016 The patient seemed be doing relatively well. We'll continue to follow. We'll continue with adequate pain control and the use of the incentive spirometer. Is taking care of himself and being careful. 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 This is obviously very dangerous. We'll continue to follow closely. Time with Patient: Less than 30
[2016-09-18] MEDS: HYDROcodone/APAP 5-325MG 1 EACH TAB PO PRN ×2 (03:45→08:23)
--- NOTE | 2016-09-18 06:24 | P.CONS ---
History of Present Illness - Chief Complaint Multiple trauma - History of Present Illness I had the op to see patient for inpatient rehab consultation with regard to multiple trauma. He was apparently cutting tree in his backyard when it fell on him. Seen in consultation by surgery, pulmonary in orthopedics. Chest x- ray demonstrates left base atelectasis. Pelvic x-ray negative. Computed tomography scan of head and C-spine negative for fracture. CT of abdomen and pelvis and chest demonstrated left rib fractures and pneumothorax. X-ray of the right scapula shows comminuted fracture. Note and left rib fractures. OT reports maximal assistance for bathing, upper and lower dressing. Minimal assistance for toileting. PT prescribed. Previous functional history as elicited from patient: 60-year-old right-handed white male who is single lives in one floor home alone. Unemployed. Describes independent with own cooking, laundry, standing shower and gait without device. Does not drive. Dr. Dipesh Aparicio is regular doctor. Family history of pancreatic cancer in mother. Review of Systems Review of systems: ENT: Denies sneezes or discharge. Eyes: Denies discharge or photophobia. Cardiac: Denies chest pain or palpitation. Pulmonary: Some chest pain and shortness of breath with movement. Gastrointestinal: Denies nausea, emesis, constipation, diarrhea. Genitourinary: Denies discharge or frequency. Musculoskeletal: Pain or discomfort both shoulders. Neurologic: Denies motor or sensory change. Endocrine: Denies shakes or sweats. Oncology: Denies cancers. Dermatologic: Denies rash, itching, pruritus. ALLERGY/immunology: Denies sneezes, rashes. Past Medical History Past Medical History: No Reported History History of Any Multi-Drug Resistant Organisms: Unobtainable Past Surgical History: No Surgical Hx Reported Past Anesthesia/Blood Transfusion Reactions: No Reported Reaction Smoking Status: Former smoker Additional Past Alcohol Use History / Comment(s): States he quit drinking alcohol years ago Past Drug Use History: Marijuana Additional Drug Use History / Comment(s): Occasional marijuana use to help him sleep - Past Family History Mother Family Medical History: Cancer Additional Family Medical History / Comment(s): PANCREASE CANCER. Father History Unknown: Yes Medications and Allergies Home Medications Medication Instructions Recorded Confirmed Type No Known Home Medications [No 09/14/16 09/14/16 History Known Home Medications] Allergies Allergy/AdvReac Type Severity Reaction Status Date / Time No Known Allergies Allergy Verified 09/14/16 17:37 Physical Exam Vitals: Vital Signs Temp Pulse Resp BP Pulse Ox 09/18/16 04:03 20 93 L 09/18/16 04:00 49 L 16 150/73 86 L 09/18/16 00:00 52 L 16 148/82 93 L 09/17/16 20:00 98.7 F 54 L 16 153/86 92 L 09/17/16 16:00 97.6 F 54 L 16 145/88 98 09/17/16 12:00 97.9 F 55 L 16 133/77 94 L 09/17/16 08:00 97.0 F L 61 16 139/87 94 L Intake and Output 09/17/16 09/17/16 09/18/16 14:59 22:59 06:59 Intake Total 450 240 Output Total 500 Balance 450 240 -500 Intake: IV 10 0 0.9 10 0 Oral 440 240 Output: Urine 500 Other: Voiding Method Toilet Toilet Urinal Urinal # Voids 1 Weight 61 kg Patient Weight 09/18/16 06:59 Weight 61 kg Skin: Good color, texture, turgor. General: Medium build and pained appearance. Head: Normocephalic, atraumatic. Eyes: Symmetric. Pupils equal round. Ears: Symmetric. Hearing within normal limits. Mouth: Clear. Neck: Supple. Carotid without bruit. Cardiac: Regular rate and rhythm. Lungs: Clear anteriorly and posteriorly. Abdomen: Soft active nontender. Extremities: Normal tone. Neurological: Mental status: Alert, cooperative, pleasant. Cranial nerves: Symmetric facial tone and trapezius. Motor: Active movement all limbs but difficulty elevating either arm off bed. Sensation: Intact throughout. DTRs: Symmetric and equal throughout. Mobility: Did not attempt to sit or stand this a.m. Results CBC & Chem 7: 09/14/16 15:21 09/14/16 15:21 Assessment and Plan (1) Fall Status: Acute Plan: Impression: 1. Multiple trauma with fractures: A left ribs B right scapula CC left clavicle Comments and plan: PT and OT are ongoing. OT documents safety concerns. Note that patient lives alone. He is already aware of possible inpatient rehab and discussed [facility].
[2016-09-18] MEDS: NICOTINE 21MG/24HR PATCH TRANSDERM SCH (07:06)
[2016-09-18] MEDS: PANTOPRAZOLE 40 MG TABLET PO SCH (07:06)
[2016-09-18] MEDS: ENOXAPARIN 40 MG/0.4 ML SYRINGE SQ SCH (08:22)
[2016-09-18] MEDS: LIDOCAINE 5% PATCH TOPICAL SCH (08:22)
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
[2016-09-18 12:42] VITALS: BP 136/80; PULSE 57; RESP 18; TEMP 97
--- NOTE | 2016-09-18 12:54 | P.PN ---
Subjective Progress note dated 09/17/2016 This is a 60-year-old male who has no major medical problems. He did fall. His climbing a ladder and apparently fell and injured the left chest area. Multiple left rib fractures #123 and 4 ribs. He also had a left-sided pneumothorax status post chest tube placement and also had a pulmonary contusion. The left chest tube is been removed. He has lots of bruises on his anterior chest chest area and left shoulder. Is feeling better. Likely discharge home soon. Anyway the patient is resting comfortably. His biggest issue is pain control. We will have to make sure that he gets adequate pain control so he takes deep breaths. Also will continue the breathing treatments and incentive spirometer. Progress note dated 09/18/2016 This is a 60-year-old male who came into the hospital with injuries to his left eye and left chest area. He fell off a ladder he was apparently try to cut down a tree or tree branch. He fell. He fell on the latter difficulty in injuries including a left pneumothorax and left pulmonary contusion and also multiple rib fractures including the both the anterior posterior portions of rib 1 and then ribs 2 3 and 4. The patient's doing better. Still on oxygen therapy. Apparently he has not been to a doctor for many many years. He may need to be discharged to rehab. Apparently Dr. Baires from [facility] evaluate him for possible inpatient rehab. I'm I don't know where that stands. Anyway the patient is doing better. May need to be discharged on some oxygen therapy. He is a smoker. He is using the incentive spirometer. Really not taking deep breaths. Still has a lot of pain in the left chest area. Objective - Vital Signs Vital signs: Vital Signs Temp 97 F L 09/18/16 12:35 Pulse 57 L 09/18/16 12:35 Resp 18 09/18/16 12:35 BP 136/80 09/18/16 12:35 Pulse Ox 94 L 09/18/16 12:35 Intake & Output 09/17/16 09/18/16 09/18/16 18:59 06:59 18:59 Intake Total 450 240 237 Output Total 500 Balance 450 -260 237 Weight 61 kg Intake: IV 10 0 0.9 10 0 Oral 440 240 237 Output: Urine 500 Other: Voiding Method Toilet Urinal # Voids 1 - Exam No acute distress, oriented 3. Left arm in a sling. Wearing nasal O2. HEENT examination is grossly unremarkable. Mixed membranes are moist. The patient has significant priorbital ecchymoses on the left eye. Neck supple. Full range of motion. No adenopathy or thyromegaly. Neck veins are flat. Cardiovascular examination reveals regular rhythm rate. S1-S2 normal. No S3- S4 or murmur. Lungs reveal diminished breath sounds. A few scattered rhonchi. No crackles. Abdomen soft bowel sounds are heard. No masses or tenderness. Extremities are intact. No cyanosis clubbing or edema. Skin is without rash. Neurologic examination is brief but nonfocal. - Labs CBC & Chem 7: 09/14/16 15:21 09/14/16 15:21 Assessment and Plan (1) Closed left clavicular fracture Status: Acute (2) Multiple abrasions Status: Acute (3) Multiple rib fractures involving first rib Status: Acute (4) Pneumothorax on left Status: Acute (5) Right scapula fracture Status: Acute (6) Status post chest tube placement Status: Acute Plan: Plan dated 09/17/2016 The patient seemed be doing relatively well. We'll continue to follow. We'll continue with adequate pain control and the use of the incentive spirometer. Is taking care of himself and being careful. 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 This is obviously very dangerous. We'll continue to follow closely. Plan dated 09/18/2016 the patient may need to be discharged home on oxygen therapy. That'll be okay. I'm sure a lot of the problem is the fact that he has some underlying COPD from tobacco use as well as a fact he is not really taking deep breaths. Not really doing as well as he should be on the incentive spirometer because of pain. As things heal up, he should do much better be able to transition off of oxygen therapy. He apparently has been evaluated by the physiatry is. I'm not sure that stands. We'll continue to follow. Prognosis is guarded. Time with Patient: Less than 30
[2016-09-18 14:02] VITALS: BMI 19.3
--- NOTE | 2016-09-18 16:44 | P.DS ---
Providers Date of admission: 09/14/16 17:22 Expected date of discharge: 09/18/16 Attending physician: Del Lee Consults: 09/14/16 17:23 Consult Physician Routine Consulting Provider: Andrew Morales Consult Reason/Comments: Chest tubes status post traumatic pneumothorax, multiple rib fractures Do you want consulting provider notified?: Yes Consult Physician Routine Consulting Provider: Eran Brady Consult Reason/Comments: Pneumothorax status post chest tube, multiple rib fractures Do you want consulting provider notified?: Yes 09/15/16 12:08 Consult Physician Urgent Consulting Provider: Jonah Avalos Consult Reason/Comments: clavicular fracture (left) , right shoulder pain Do you want consulting provider notified?: Yes 09/17/16 12:26 Consult Physician Routine Consulting Provider: Willie Baires Consult Reason/Comments: [facility] Inpatient Rehab Do you want consulting provider notified?: Yes Primary care physician: Stated None - Discharge Diagnosis(es) (1) Fall Current Visit: Yes Status: Acute (2) Multiple abrasions Current Visit: Yes Status: Acute (3) Multiple rib fractures involving first rib Current Visit: Yes Status: Acute (4) Pneumothorax on left Current Visit: Yes Status: Acute Hospital Course: Is a 60-year-old male who while cutting the branch of artery had a branch fall on him resulting in significant amount of back injury. This involved the posterior rib injuries in the left side and scapular injury of the right. He also had a clavicular fracture on the left. He also developed a 50% pneumothorax for which he received a chest tube. Chest tube was in the management on consult by thoracic surgery. Orthopedic consultation and pulmonology consultation was also obtained. The chest tube was discontinued and 48 hours. He did not have recurrence of his pneumothorax. Pain was managed with the help of oral pain medication as well as Lidoderm patches. Examination improved. But he still remains significantly weak. He has significant history of underlying COPD along with the current respiratory issues he is oxygen dependent. He is being discharged on home on O2 as per pulmonology with a follow-up with both pulmonology general surgery and orthopedics. Pertinent Studies: CT of the head abdomen and pelvis and chest. Multiple chest x-rays Procedures: Tube thoracostomy Patient Condition at Discharge: Stable Plan - Discharge Summary New Discharge Prescriptions: New HYDROcodone/APAP 5-325MG [[place] 5-325] 2 tab PO Q6HR PRN #40 tab PRN Reason: Pain Ibuprofen [Motrin] 800 mg PO Q8HR PRN #30 tab PRN Reason: Pain Lidocaine [Lidoderm 5% Patch] 1 patch TRANSDERM DAILY #15 patch Discharge Medication List HYDROcodone/APAP 5-325MG [[place] 5-325] 2 tab PO Q6HR PRN #40 tab 09/18/16 [Rx] Ibuprofen [Motrin] 800 mg PO Q8HR PRN #30 tab 09/18/16 [Rx] Lidocaine [Lidoderm 5% Patch] 1 patch TRANSDERM DAILY #15 patch 09/18/16 [Rx] Follow up Appointment(s)/Referral(s): Del Lee MD [STAFF PHYSICIAN] - 09/24/16 2:15 pm [facility], [NON-STAFF] - As Needed None,Stated [Primary Care Provider] - 1-2 days Jonah Avalos DO [Doctor of Osteopathic Medicine] - 10/03/16 8:15 am Patient Instructions/Handouts: Traumatic Pneumothorax (DC), Rib Fracture (DC) Activity/Diet/Wound Care/Special Instructions: Maintain slings to bilateral upper extremities Discharge Disposition: HOME WITH HOME HEALTH SERVICES
== END 2016-09-18 18:11 | disposition home health service (06) | DRG 200 ==
LOC: EC 15:15 → 6SEL 17:22
PROVIDERS: ADMIT Surgery; ATTEND Surgery
PROC: 0W9B30Z Drainage of Left Pleural Cavity with Drainage Device, Percutaneous Approach (ICD-10-PCS; principal; 2016-09-14)
DX: S27.0XXA Traumatic pneumothorax, initial encounter (principal); J98.11 Atelectasis; S22.42XA Multiple fractures of ribs, left side, initial encounter for closed fracture; S27.321A Contusion of lung, unilateral, initial encounter; J44.9 Chronic obstructive pulmonary disease, unspecified; F17.200 Nicotine dependence, unspecified, uncomplicated; S42.002A Fracture of unspecified part of left clavicle, initial encounter for closed fracture; S42.101A Fracture of unspecified part of scapula, right shoulder, initial encounter for closed fracture; F12.90 Cannabis use, unspecified, uncomplicated; M54.2 Cervicalgia; W11.XXXA Fall on and from ladder, initial encounter; Y92.9 Unspecified place or not applicable
CPT/HCPCS: 32551; 36415; 70450; 71010; 71260; 72125; 72170; 74177; 80053; 80320; 82150; 82550; 82553; 83605; 83690; 84484; 85025; 85610; 85730; 86850; 86900; 86901; 90471; 90715; 93005; 94760; 96374; 96375; 99285

== ENCOUNTER → 2016-10-01 | Outpatient (CLI) | payer OTHER ==
[2016-10-01 13:02] LABS: CH 30.7; CHCM 32.8; HCT 43.5 % (39.0-53.0); HDW 2.43; HGB 14.5 gm/dL (13.0-17.5); MCH 31.2 pg (25.0-35.0); MCHC 33.3 g/dL (31.0-37.0); MCV 93.9 fL (80.0-100.0); Mean Platelet Volume 7.8; RBC 4.63 m/uL (4.30-5.90); WBC 7.4 k/uL (3.8-10.6)
[2016-10-01 13:21] LABS: Anion Gap 9 mmol/L; Blood Urea Nitrogen 16 mg/dL (9-20); Calcium 9.9 mg/dL (8.4-10.2); Carbon Dioxide 26 mmol/L (22-30); Chloride 107 mmol/L (98-107); Glucose 82 mg/dL (74-99); Non-African American GFR(MDRD) >60 (>60 ml/min/1.73 sqM); Potassium 4.5 mmol/L (3.5-5.1); Sodium 142 mmol/L (137-145)
--- NOTE | 2016-10-01 13:46 | XR ---
EXAMINATION TYPE: XR chest 2V DATE OF EXAM: 10/01/2016 COMPARISON: Prior chest x-ray 09/17/2016 HISTORY: Pneumonia, trauma, status post chest tube removal TECHNIQUE: Frontal and lateral views of the chest are obtained. FINDINGS: Left-sided fractures, some of which are displaced, as well as right scapular fracture are again noted. Displaced left clavicular fracture also present. No evident pneumothorax. Minimal thicke jaquan of the pleura as well as blunting of the left costophrenic angle is noted. Prominent lung volume s suggest underlying COPD. There are coronary artery calcifications. The aorta is dense. Cardiac medi astinal silhouette, pulmonary vascularity and mine are stable. Aorta is stable. Bandlike area of scar ring is stable in the left lung base. IMPRESSION: Posttraumatic findings, no evident pneumothorax.
== END ==
LOC: LABWHC1 11:54
PROVIDERS: ATTEND Surgery
DX: J18.9 Pneumonia, unspecified organism (principal)
CPT/HCPCS: 36415; 71020; 80048; 85027

== ENCOUNTER 2016-12-21 14:16 | Emergency (ER) | payer OTHER ==
[2016-12-21 14:52] VITALS: BP 172/93; PULSE 60; RESP 16; TEMP 98.2
[2016-12-21] MEDS ORDERED: AMOXIC-POT CLAV 875-125MG 1 EACH TAB PO STA (16:52)
[2016-12-21] MEDS ORDERED: OFLOXACIN 0.3% OPHTH DROPS 5 ML BOTTLE BOTH EARS STA (16:53)
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
== END 2016-12-21 17:29 | disposition home or self-care (01) ==
LOC: EC 14:16
DX: H60.93 Unspecified otitis externa, bilateral (principal); H61.23 Impacted cerumen, bilateral; Z87.891 Personal history of nicotine dependence
CPT/HCPCS: 69209; 99282

== ENCOUNTER 2021-08-11 12:40 | Emergency (ER) | payer OTHER ==
[2021-08-11 12:51] VITALS: BP 156/76; PULSE 52; RESP 16; TEMP 98.3
[2021-08-11] MEDS ORDERED: PROPARACAINE 0.5% OPHTH DROPS 15 ML BTL RIGHT EYE STA (13:02)
[2021-08-11] MEDS ORDERED: FLUORESCEIN STRIPS 1 MG STRIP RIGHT EYE ONE (13:02)
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
[2021-08-11] MEDS ORDERED: FLUORESCEIN STRIPS 1 MG STRIP LEFT EYE ONE (13:42)
[2021-08-11] MEDS ORDERED: DIPH,PERTUS(ACELL)TETVAC-LF 0.5 ML VIAL IM ONE (14:59)
== END 2021-08-11 15:32 | disposition home or self-care (01) ==
LOC: EC 12:40
DX: S05.01XA Injury of conjunctiva and corneal abrasion without foreign body, right eye, initial encounter (principal); Z23 Encounter for immunization; W01.0XXA Fall on same level from slipping, tripping and stumbling without subsequent striking against object, initial encounter
CPT/HCPCS: 90715